=== PATIENT | female | born 1995 | race Caucasian/White ===

== ENCOUNTER 2017-01-11 10:21 | Emergency (ER) | payer MEDICAID ==
[~2017-01-11] VITALS: Ht 154.9 cm; Wt 63.0 kg
[~2017-01-11 10:21] MED LIST: ASPI-496 PO; PREN1TAB27 PO
[2017-01-11 10:23] VITALS: BP 113/73
== END 2017-01-11 11:16 | disposition home or self-care (01) ==
LOC: ED 10:55
DX: H65.03 Acute serous otitis media, bilateral (principal); J02.9 Acute pharyngitis, unspecified
CPT/HCPCS: 99281

== ENCOUNTER 2017-03-20 01:12 | Outpatient (CLI) | payer MEDICAID ==
[2017-03-20 01:59] LABS: PATH.CAST-FLAG NOT PRESENT; SPERM-FLAG NOT PRESENT; SRC-FLAG NOT PRESENT; XTAL-FLAG NOT PRESENT; YLC-FLAG NOT PRESENT
== END 2017-03-20 02:47 | disposition home or self-care (01) ==
LOC: LDOP 01:12
PROVIDERS: ATTEND Obstetrics & Gynecology
DX: O26.893 Other specified pregnancy related conditions, third trimester (principal); O46.93 Antepartum hemorrhage, unspecified, third trimester; O99.343 Other mental disorders complicating pregnancy, third trimester; F32.9 Major depressive disorder, single episode, unspecified; R25.2 Cramp and spasm; Z3A.30 30 weeks gestation of pregnancy
CPT/HCPCS: 59025; 81001; 87086; 99211; G0463

== ENCOUNTER 2017-05-05 05:32 | Inpatient (IN) | payer MEDICAID ==
[~2017-05-05] VITALS: Ht 157.5 cm; Wt 70.0 kg
[2017-05-05] MEDS ORDERED: OXYTOCIN 30U/ 0.9% NaCL 500ML 500 ML IV ONE (05:36)
[2017-05-05] MEDS ORDERED: OXYTOCIN 30U/ 0.9% NaCL 500ML 500 ML IV PRN (05:36)
[2017-05-05] MEDS: D5%-LACTATED RINGERS 1,000 ML IV SCH ×2 (05:36→13:36)
[2017-05-05 05:45] VITALS: BP 135/66
[2017-05-05] MEDS ORDERED: OXYTOCIN 30U/ 0.9% NaCL 500ML 500 ML ONE (05:52)
[2017-05-05] MEDS: LACTATED RINGERS 1,000 ML IV SCH ×5 (05:59→19:33)
[2017-05-05] MEDS ORDERED: PENICILLIN GK 5,000,000 UNITS in DEXTROSE 5% 100 ML IVPB ONE (06:00)
[2017-05-05] MEDS ORDERED: FENTANYL PF 100 MCG/2ML IVPush PRN (06:00)
[2017-05-05] MEDS ORDERED: ONDANSETRON 2MG/ML, 2ML IVPush PRN (06:00)
[2017-05-05] MEDS ORDERED: CALCIUM CARBONATE 500 MG TAB.CHEW PO PRN (06:00)
[2017-05-05] MEDS ORDERED: SODIUM CITRATE/CITRIC ACID 30 ML UDC PO PRN (06:00)
[2017-05-05] MEDS ORDERED: METOCLOPRAMIDE 5 MG/ML, 2ML IVPush PRN (06:00)
[2017-05-05] MEDS: PLEASE ENTER HEIGHT AND WEIGHT MC SCH ×2 (06:00→14:00)
[2017-05-05] MEDS ORDERED: TERBUTALINE 1 MG/ML, 1ML IVPush PRN ×2 (06:00)
[2017-05-05 06:02] LABS: DAU SCREEN DISCLAIMER
[2017-05-05] MEDS ORDERED: MISOPROSTOL 200 MCG TABLET ONE (07:18)
[2017-05-05] MEDS ORDERED: NEWBORN KIT ONE (07:18)
[2017-05-05] MEDS ORDERED: LIDOCAINE 1%, 20ML ONE (07:18)
[2017-05-05] MEDS ORDERED: FENTANYL PF 100 MCG/2ML ONE ×2 (08:16→10:13)
[2017-05-05] MEDS: FENTANYL PF 100 MCG/2ML IV PRN ×2 (08:19→10:17)
[2017-05-05] MEDS: PENICILLIN GK 2,500,000 UNITS in DEXTROSE 5% 100 ML IV SCH ×2 (10:06→14:17)
[2017-05-05] MEDS ORDERED: FENTANYL/BUPIV./NS/PF 250 ML EPIDCONT ONE (10:58)
[2017-05-05] MEDS ORDERED: LIDOCAINE/PF 1.5%-EPI 1:200K, 30ML ONE (10:59)
[2017-05-05] MEDS ORDERED: DIPH,PERTUSS(ACELL),TET VAC/PF NC IM-VACC ONE ×2 (11:30→14:39)
[2017-05-05] MEDS: FENTANYL/BUPIV./NS/PF 250 ML EPIDCONT SCH (11:33)
[2017-05-05] MEDS ORDERED: LACTATED RINGERS 1,000 ML IVBOLUS PRN (12:00)
[2017-05-05] MEDS ORDERED: HYDROcodone/APAP 5/325 TABLET ONE (16:56)
[2017-05-05] MEDS ORDERED: IBUPROFEN 600 MG TABLET ONE (16:57)
[2017-05-05] MEDS: OXYTOCIN 30U/ 0.9% NaCL 500ML 500 ML IV SCH (16:58)
[2017-05-05] MEDS ORDERED: HYDROcodone/APAP 5/325 TABLET PO PRN (17:00)
[2017-05-05] MEDS ORDERED: ACETAMINOPHEN 325 MG TABLET PO PRN (17:00)
[2017-05-05] MEDS ORDERED: METHYLERGONOVINE 0.2 MG/ML IM PRN (17:00)
[2017-05-05] MEDS ORDERED: ONDANSETRON 2MG/ML, 2ML IV PRN (17:00)
[2017-05-05] MEDS ORDERED: MISOPROSTOL 200 MCG TABLET PR PRN (17:00)
[2017-05-05] MEDS: HYDROcodone/APAP 5/325 TABLET PO PRN ×2 (17:05→22:17)
[2017-05-05] MEDS: IBUPROFEN 600 MG TABLET PO PRN ×2 (17:05→22:17)
[2017-05-05 18:30] VITALS: BP 120/64
[2017-05-05 21:00] VITALS: BP 111/68
[2017-05-05] MEDS: DOCUSATE 100 MG CAPSULE PO PRN (22:17)
[2017-05-06] VITALS: BP 118/70
[2017-05-06] MEDS: OXYTOCIN 30U/ 0.9% NaCL 500ML 500 ML IV SCH ×3 (02:58→22:58)
[2017-05-06] MEDS: LACTATED RINGERS 1,000 ML IV SCH ×3 (03:33→19:33)
[2017-05-06] MEDS: HYDROcodone/APAP 5/325 TABLET PO PRN ×4 (03:53→19:34)
[2017-05-06] MEDS: IBUPROFEN 600 MG TABLET PO PRN ×3 (03:53→19:34)
[2017-05-06 07:47] VITALS: BP 118/75
[2017-05-06] MEDS: DOCUSATE 100 MG CAPSULE PO PRN ×2 (08:16→19:34)
[2017-05-06] MEDS: PRENATAL VIT/IRON/FA 1 EACH TABLET PO SCH (08:16)
[2017-05-06] MEDS: FENTANYL/BUPIV./NS/PF 250 ML EPIDCONT SCH (08:23)
[2017-05-06] MEDS: FERROUS GLUCONATE 324 MG TABLET PO SCH ×2 (09:16→19:20)
[2017-05-06 19:25] VITALS: BP 128/77
[2017-05-07] MEDS: HYDROcodone/APAP 5/325 TABLET PO PRN ×3 (00:25→12:23)
[2017-05-07] MEDS: LACTATED RINGERS 1,000 ML IV SCH (03:33)
[2017-05-07] MEDS: FENTANYL/BUPIV./NS/PF 250 ML EPIDCONT SCH (05:13)
[2017-05-07] MEDS: PRENATAL VIT/IRON/FA 1 EACH TABLET PO SCH (07:18)
[2017-05-07] MEDS: DOCUSATE 100 MG CAPSULE PO PRN (07:18)
[2017-05-07] MEDS: FERROUS GLUCONATE 324 MG TABLET PO SCH (07:19)
[2017-05-07] MEDS: IBUPROFEN 600 MG TABLET PO PRN (07:19)
[2017-05-07 07:35] VITALS: BP 115/68
[2017-05-07] MEDS ORDERED: IBUP-1222 PO (08:55)
[2017-05-07] MEDS ORDERED: DOCU-30 PO (08:56)
[2017-05-07] MEDS ORDERED: FERR324T18 PO (08:56)
[2017-05-07] MEDS ORDERED: HYDR-3240 PO (08:58)
== END 2017-05-07 14:35 | disposition home or self-care (01) | DRG 775 ==
LOC: LDIP 05:32 → 2NW 18:16
PROVIDERS: ADMIT Student in an Organized Health Care Education/Training Program; ATTEND Student in an Organized Health Care Education/Training Program
PROC: 10E0XZZ Delivery of Products of Conception, External Approach (ICD-10-PCS; principal; 2017-05-05)
PROC: 0UQMXZZ Repair Vulva, External Approach (ICD-10-PCS; 2017-05-05)
PROC: 00HU33Z Insertion of Infusion Device into Spinal Canal, Percutaneous Approach (ICD-10-PCS; 2017-05-05)
PROC: 3E0R3CZ (ICD-10-PCS; 2017-05-05)
DX: O99.824 Streptococcus B carrier state complicating childbirth (principal); Z37.0 Single live birth; Z3A.38 38 weeks gestation of pregnancy; O99.02 Anemia complicating childbirth; D64.9 Anemia, unspecified; O36.5930 Maternal care for other known or suspected poor fetal growth, third trimester, not applicable or unspecified; O99.344 Other mental disorders complicating childbirth; F32.9 Major depressive disorder, single episode, unspecified; Z79.82 Long term (current) use of aspirin; O71.82 Other specified trauma to perineum and vulva
CPT/HCPCS: 36415; 80307; 85025; 86850; 86900; 90715; J2540; J3010; J2590; J7120